=== PATIENT | female | born 1975 | race Two or more races ===

== ENCOUNTER 2024-04-08 07:12 | Emergency (ER) | payer MEDICAID, SELFPAY ==
[2024-04-08 07:13] VITALS: BMI 31.1
[2024-04-08 07:22] VITALS: BP 129/81; PULSE 91; RESP 15; TEMP 36.9; O2SAT 97; BMI 26.2
--- NOTE | 2024-04-08 07:22 | XR_ITS ---
Examination: CT brain head without contrast. 2-D sagittal coronal reconstructions Date and time of exam:April 08, 2024 0801 hrs. Indications: Generalized head pain beginning 10 days ago CTDI: vol (mGy):43.6 DLP: (mGycm):836 Technique: Multiple CT axial sections of the brain have been obtained, 5 mm slice thickness. Contrast has not been administered. 2-D sagittal, coronal reconstructions have been obtained Low dose protocols were performed. One or more of the following dose reduction techniques were used; automated exposure control, adjustment of the mA and/or KV according to patient size, use of iterative reconstruction technique. Findings: No significant ventricular enlargement. Intra-axial or extra-axial hemorrhage density is not seen. No mass effect or midline shift Basal cisterns are not remarkable. Fourth ventricle is midline. Cranial vault intact. Impression: Negative for acute hemorrhage, mass effect or midline shift Advise clinical correlation follow-up accordingly
[2024-04-08] MEDS: METOCLOPRAMIDE 5 MG TABLET 10 MG PO (07:26)
[2024-04-08] MEDS: HYDROcodone/APAP 10/325 TAB PO (07:28)
[2024-04-08] MEDS: DiphenhydrAMINE 25 MG CAPSULE 50 MG PO (07:28)
--- NOTE | 2024-04-08 07:30 | PD.EDHA ---
ED Headache RME/HPI General Chief Complaint: Headache Stated Complaint: HOSKINS x 7 DAYS Time Seen by Provider: 04/08/24 07:16 Arrival date/time: 04/08/24 07:12 RME / HPI RME / HPI Narrative: Patient is a 49-year-old female with past medical history of non-insulin dependent type 2 diabetes on oral medications who presents with 1 week of headache. Patient reports this is the first time she has experienced this type of headache. Denies any changes to vision, numbness, weakness, or other neurological deficit. MD Complaint: headache Onset (ago): day(s) Related Data Home Medications ?Medication ?Instructions ?Recorded ?Confirmed lisinopril 5 mg tablet 5 mg PO DAILY 04/25/18 06/10/20 pioglitazone 15 mg tablet 15 mg PO QDAY 06/10/20 06/10/20 sitagliptin phosphate 50 1 tab PO BID 06/10/20 06/10/20 mg-metformin 1,000 mg tablet (Janumet) Previous Rx's ?Medication ?Instructions ?Recorded ibuprofen 600 mg tablet 600 mg PO Q8H PRN fever or pain 11/30/20 #30 tabs Allergies Allergy/AdvReac Type Severity Reaction Status Date / Time No Known Allergies Allergy Verified 04/08/24 07:16 Review of Systems Review of Systems Systems Reviewed: All systems reviewed, normal except as documented Past Medical History Past Medical History NEUROLOGIC: Negative Neurological Disorders or Seizures CARDIAC: Positive Hypercholesterolemia and Hypertension; Negative Cardiac Disorders or Congestive Heart Failure RESPIRATORY: Negative Chronic Obstructive Pulmonary Disease (COPD), Asthma, Tuberculosis or Sleep Apnea GASTROINTESTINAL: Negative Gastrointestinal Disorders GENITOURINARY: Negative Genitourinary Disorders or Renal Disease REPRODUCTIVE: Positive Previous Pregnancies MUSCULOSKELETAL: Negative Musculoskeletal Disorders ENDOCRINE: Positive Endocrine Disorders and Diabetes Mellitus Type 2; Negative Diabetes Mellitus Type 1 HEMATOLOGIC: Negative Blood Disorders or Sickle Cell Disease OTHER HISTORY: Negative Hospitalization, Autoimmune Disease, Shingles, Falls, Blood Transfusions, Blood Transfusion Reaction, Anesthesia Reactions, Chemotherapy, Radiation Therapy or MRSA Family History FAMILY HISTORY: Positive Family Cardiac Disorders and Family Surgery; Negative Family Psychiatric Problems, Family Respiratory Disorders, Family Gastrointestinal Problems, Family Cancer or Family Anesthesia Reaction Surgical History SURGICAL: Positive Hysterectomy, Tubal Ligation and Section Social History SMOKING STATUS: Never smoker Travel History EBOLA RISK: No ED Exam Narrative Physical exam: Physical Exam General: Awake and in no acute distress. Conversational and non-toxic appearing. HEENT: Normocephalic, atraumatic, mucous membranes moist. Pupils equal, round, and reactive to light. Heart: Regular rate and rhythm, no murmurs. Lungs: Clear to auscultation with no wheezing or crackles. Neurologic: Alert and oriented x3, no gross neurological deficit, and patient able to move all 4 extremities. Extremities: No edema. Skin: No rash or ecchymoses. Course Quality Measures none Orders Category Date Time Status CT head/brain wo con Stat Exams 04/08/24 07:22 Completed A1C [Glycohemoglobin w (eAG)] Stat Lab 04/08/24 07:34 Completed CBC Stat Lab 04/08/24 07:34 Completed CMP [Comprehensive Metabolic Panel] Stat Lab 04/08/24 07:34 Completed DiphenhydrAMINE [Benadryl] Med 04/08/24 07:22 Discontinued 50 mg PO X1 ONE HYDROcodone/APAP 10/325 [[place] 10/325] Med 04/08/24 07:22 Discontinued 1 tab PO X1 ONE Ketorolac Inj [Toradol Inj] Med 04/08/24 08:16 Discontinued 30 mg IM X1 ONE Metoclopramide [Reglan] Med 04/08/24 07:22 Discontinued 10 mg PO X1 ONE Vital Signs Vital signs: Vital Signs Temperature 98.5 F 04/08/24 07:22 Pulse Rate 91 04/08/24 07:22 Respiratory Rate 15 04/08/24 07:22 Blood Pressure 129/81 04/08/24 07:22 Pulse Oximetry (%) 97 04/08/24 07:22 Oxygen Delivery Method Room Air 04/08/24 07:22 Headache MDM Narrative MDM Narrative:: Labs and radiology as follows ordered to determine etiology of headache. CBC is normal according to my interpretation. CMP is normal according to my interpretation, other than elevated glucose 317. CT head is normal according to my interpretation. Patient will be given ketorolac injection and will be safe to discharge home. Return precautions given. Patient data External records reviewed:: [facility] previous records Clinical information provided by:: patient Social determinants that could affect healthcare access:: none Patient has the following chronic illnesses:: As above How is presenting disease/condition affected by chronic disease/condition?: uneffected by Evaluation data The following diagnostics were reviewed and interpreted by me:: lab results and radiology exam(s) Lab and/or radiology exams considered but not ordered:: Ordered Interpretation Summary: As above Medications / Prescriptions Medications or Prescriptions considered but not ordered:: Given Medication administrations:: Medication Administration History Discontinued Medications Hydrocodone Bitart/Acetaminophen (Hydrocodone/Apap 10/325 Tab) 1 tab PO X1 ONE Stop: 04/08/24 07:23 Last Admin: 04/08/24 07:28 Dose: 1 tab Documented By: TWAN Diphenhydramine HCl (Diphenhydramine 25 Mg Capsule) 50 mg PO X1 ONE Stop: 04/08/24 07:23 Last Admin: 04/08/24 07:28 Dose: 50 mg Documented By: TWAN Ketorolac Tromethamine (Ketorolac Inj 60 Mg/2 Ml Vial) 30 mg IM X1 ONE Stop: 04/08/24 08:17 Last Admin: 04/08/24 08:38 Dose: 30 mg Documented By: TWAN Metoclopramide HCl (Metoclopramide 5 Mg Tablet) 10 mg PO X1 ONE Stop: 04/08/24 07:23 Last Admin: 04/08/24 07:26 Dose: 10 mg Documented By: TWAN Given Consultations Consultation(s) initiated? (list below): No Diagnosis Differential diagnosis headache: migraine, tension headache, headache and sinusitis Most likely diagnosis given after review of the tests above:: Tension headache Admission Indicated Admission indicated?: not indicated Admission Request Was there a request for admission?: No Disposition Plan Disposition Plan: Discharge Discharge Attestation Discharge Attestation: The patient and all family members were given an opportunity to ask questions and understood the discharge instructions. Discharge instructions specifically effects, indications for sooner follow up or return to the emergency department, and the expected course of current diagnosis. Patient condition: Stable Discharge Plan Plan Patient Disposition: HOME (Self Care) Patient condition on transfer: Stable Prescriptions/Referrals Prescriptions/Med Rec: No Action ibuprofen 600 mg tablet 600 mg PO Q8H PRN (Reason: fever or pain) Qty: 30 0RF lisinopril 5 mg Tablet 5 mg PO DAILY Janumet 50-1,000 mg Tablet 1 tab PO BID pioglitazone 15 mg Tablet 15 mg PO QDAY Problem List Clinical Impression: Tension headache Patient/Caregiver Discharge Instructions Education Materials: Self-Care for Headaches, Preventing Tension Headaches, ED Headache, Tension Additional Instructions: Please return to ED if symptoms worsen Print Language: Maltese Stand Alone Forms: [employer] Info., Patient Portal Info Letter
[2024-04-08 07:49] LABS: Hematocrit 43.7 % (36.0-46.0); Hemoglobin 15.2 g/dL (12.0-16.0); Mean Corpuscular Hemoglobin 29.8 pg (25.0-35.0); Mean Corpuscular Volume 86 fL (80-100); White Blood Count 9.1 Thou/mm3 (3.6-11.0)
[2024-04-08 07:50] LABS: Basophils % (Auto) 0 % (0-2.5); Eosinophils % (Auto) 0 % (0-10); Immature Granulocytes % (Auto) 0 % (0-0); Immature Granulocytes Auto 0.04 Thou/mm3 (0.00-0.00); Lymphocytes # (Auto) 2.1 Thou/mm3 (1.0-4.8); Lymphocytes % (Auto) 24 % (10-50); Mean Corpuscular HGB Conc 34.8 g/dl (31.0-37.0); Monocytes # (Auto) 0.3 Thou/mm3 (0.0-0.8); Monocytes % (Auto) 4 % (0-12); Neutrophils # (Auto) 6.5 Thou/mm3 (1.8-7.7); Neutrophils % (Auto) 72 % (37-80); Nucleated Red Blood Cell % 0 /100 WBC (0); Platelet Count 353 Thou/mm3 (140-440); RDW Standard Deviation 37.2 fL (36.4-46.3)
[2024-04-08 08:14] LABS: Alanine Aminotransferase 57 U/L (10-49); Albumin, Serum 4.9 gm/dL (3.5-5.0); Albumin/Globulin Ratio 1.4 (1.2-2.2); Alkaline Phosphatase 88 U/L (46-116); Anion Gap 10 (7-16); Aspartate Amino Transferase 32 U/L (0-34); BUN/Creatinine Ratio 20 Ratio (12-20); Bilirubin,Total 0.6 mg/dL (0.3-1.2); Blood Urea Nitrogen 12 mg/dL (9-23); Carbon Dioxide 24.9 mMol/L (20.0-31.0); Chloride 99 mMol/L (98-107); Creatinine (Component) 0.6 mg/dL (0.6-1.3); Estimated Creatinine Clearance 102.7 mL/min (>60); Globulin 3.5 gm/dL (2.3-3.5); Glucose 317 mg/dL (74-106); Osmolality,Calculated 279 (275-295); Potassium 3.7 mMol/L (3.4-5.1); Sodium 134 mMol/L (136-145); Total Protein 8.4 gm/dL (5.7-8.2); eGFR > 60 See Note
[2024-04-08 08:36] LABS: Glucose Estimated Average 237 mg/dL (80-131); Hemoglobin A1C 9.9 % Hgb (4.8-6.0)
[2024-04-08] MEDS: KETOROLAC INJ 60 MG/2 ML VIAL 30 MG IM (08:38)
== END 2024-04-08 09:26 | disposition home or self-care (01) ==
PROVIDERS: Nurse Practitioner Primary Care; Emergency Provider Emergency Medicine; PCP Family Medicine
DX: G44.209 Tension-type headache, unspecified, not intractable (principal); E11.65 Type 2 diabetes mellitus with hyperglycemia; I10 Essential (primary) hypertension; Z79.84 Long term (current) use of oral hypoglycemic drugs
CPT/HCPCS: 36415; 70450; 80053; 83036; 85025; 96372; 99284; J1885; A9270

== ENCOUNTER 2024-04-17 09:56 | Emergency (ER) | payer MEDICAID, SELFPAY ==
--- NOTE | 2024-04-17 | XR_ITS ---
Examinations: MRI Brain without intravenous contrast. MRA brain without intravenous contrast. MRA carotids without intravenous contrast 3-D vascular reconstructions Date and time of exam: April 17, 2024 1218 hours INDICATIONS: Left-sided headaches left eye pain 4 to follow. 10 days worse today Technique: Multiple axial and sagittal images of the brain have been obtained MRA brain carotid images without contrast obtained, including 3-D postprocessing, vascular maximum intensity projection images Findings: [place] is not enlarged. The optic chiasm and infundibular stalk are not remarkable. Prepontine and interpeduncular cisterns are not enlarged. No localized enlargement of the medulla or steven. Fourth ventricle and cerebellar tonsils normal in position. Subacute hemorrhage is not seen. Fourth ventricle is midline. Mass in the cerebellopontine angle region is not evident. 7th and 8th nerve complexes exhibits symmetry. Globes are symmetrical with no retro-orbital mass. Increased white matter signal evident, punctate focus increased signal left posterior temporal lobe FLAIR image 14 left frontal lobe FLAIR image 15 posterior right parietal lobe FLAIR image 15 Diffusion-weighted images demonstrate no focus of restricted diffusion Mass-effect upon the ventricular system is not identified. MRA brain images no large vessel occlusions Impression: Scattered punctate foci increased signal in the cerebral white matter, demyelinating disease pattern
[2024-04-17 10:20] VITALS: BP 117/78; PULSE 110; RESP 16; TEMP 36.8; O2SAT 97; BMI 25.9
--- NOTE | 2024-04-17 10:39 | PD.EDRME ---
Rapid Medical Screening Exam RME Arrival date/time: 04/17/24 09:56 49-year-old female presents the emergency department today with complaints of persistent headache patient reports left eye pain as well as left-sided facial pain patient has had multiple visits to ER as well as primary care and ophthalmology Chief Complaint: Headache Time Seen by Provider: 04/17/24 10:23 Vital signs: Vital Signs Temperature 98.2 F 04/17/24 10:20 Pulse Rate 110 H 04/17/24 10:20 Respiratory Rate 16 04/17/24 10:20 Blood Pressure 117/78 04/17/24 10:20 Pulse Oximetry (%) 97 04/17/24 10:20 Oxygen Delivery Method Room Air 04/17/24 10:20
[2024-04-17] MEDS: DIAZEPAM 5 MG TABLET 10 MG PO (10:54)
[2024-04-17] MEDS: METOCLOPRAMIDE 5 MG TABLET 10 MG PO (10:54)
[2024-04-17] MEDS: HYDROcodone/APAP 5/325 TABLET 1 TAB PO (10:54)
[2024-04-17 11:19] LABS: Basophils % (Auto) 0 % (0-2.5); Eosinophils # (Auto) 0.1 Thou/mm3 (0.0-0.5); Eosinophils % (Auto) 1 % (0-10); Hematocrit 45.2 % (36.0-46.0); Hemoglobin 15.4 g/dL (12.0-16.0); Immature Granulocytes % (Auto) 0 % (0-0); Immature Granulocytes Auto 0.02 Thou/mm3 (0.00-0.00); Lymphocytes # (Auto) 4.1 Thou/mm3 (1.0-4.8); Lymphocytes % (Auto) 42 % (10-50); Mean Corpuscular HGB Conc 34.1 g/dl (31.0-37.0); Mean Corpuscular Hemoglobin 29.7 pg (25.0-35.0); Mean Corpuscular Volume 87 fL (80-100); Monocytes # (Auto) 0.6 Thou/mm3 (0.0-0.8); Monocytes % (Auto) 6 % (0-12); Neutrophils # (Auto) 5.1 Thou/mm3 (1.8-7.7); Neutrophils % (Auto) 52 % (37-80); Nucleated Red Blood Cell % 0 /100 WBC (0); Platelet Count 338 Thou/mm3 (140-440); RDW Standard Deviation 38.2 fL (36.4-46.3); Red Blood Count 5.19 Miln/mm3 (4.00-5.20); White Blood Count 9.9 Thou/mm3 (3.6-11.0)
[2024-04-17 11:42] LABS: Sed Rate (ESR) 33 mm/hr (0-20)
[2024-04-17 12:18] LABS: Alanine Aminotransferase 60 U/L (10-49); Albumin, Serum 4.8 gm/dL (3.5-5.0); Albumin/Globulin Ratio 1.3 (1.2-2.2); Alkaline Phosphatase 84 U/L (46-116); Anion Gap 11 (7-16); Aspartate Amino Transferase 35 U/L (0-34); BUN/Creatinine Ratio 17 Ratio (12-20); Bilirubin,Total 0.4 mg/dL (0.3-1.2); Blood Urea Nitrogen 10 mg/dL (9-23); C-Reactive Protein 0.7 mg/dL (0.0-0.9); Calcium 10.4 mg/dL (8.3-10.6); Calcium (Corrected) 10.4 mg/dL (8.5-10.1); Carbon Dioxide 26.3 mMol/L (20.0-31.0); Chloride 102 mMol/L (98-107); Creatinine (Component) 0.6 mg/dL (0.6-1.3); Estimated Creatinine Clearance 102.2 mL/min (>60); Globulin 3.7 gm/dL (2.3-3.5); Glucose 204 mg/dL (74-106); Osmolality,Calculated 282 (275-295); Sodium 139 mMol/L (136-145); Total Protein 8.5 gm/dL (5.7-8.2); eGFR > 60 See Note
[2024-04-17 14:22] VITALS: BP 123/77; PULSE 100; RESP 16; TEMP 37.2; O2SAT 99
[2024-04-17 16:48] VITALS: BP 124/74; PULSE 94; RESP 18; TEMP 37.1; O2SAT 97
--- NOTE | 2024-04-17 17:23 | PD.EDHA ---
ED Headache RME/HPI General Chief Complaint: Headache Stated Complaint: HEADACHEX 10 DAYS; SEEN ER PREVIOUSLY Time Seen by Provider: 04/17/24 10:23 Arrival date/time: 04/17/24 09:56 RME / HPI RME / HPI Narrative: 49-year-old female presents the emergency department today with complaints of persistent headache patient reports left eye pain as well as left-sided facial pain patient has had multiple visits to ER as well as primary care and ophthalmology. Patient headache is been going on for 10 days. Denies any slurring of speech denies any other complaints patient is ambulatory. Related Data Home Medications ?Medication ?Instructions ?Recorded ?Confirmed lisinopril 5 mg tablet 5 mg PO DAILY 04/25/18 06/10/20 pioglitazone 15 mg tablet 15 mg PO QDAY 06/10/20 06/10/20 sitagliptin phosphate 50 1 tab PO BID 06/10/20 06/10/20 mg-metformin 1,000 mg tablet (Janumet) Previous Rx's ?Medication ?Instructions ?Recorded ibuprofen 600 mg tablet 600 mg PO Q8H PRN fever or pain 11/30/20 #30 tabs rizatriptan 10 mg disintegrating 10 mg PO Q2H PRN migraine headache 04/17/24 tablet (Maxalt-[employer]ER) #20 tabs Allergies Allergy/AdvReac Type Severity Reaction Status Date / Time No Known Allergies Allergy Verified 04/17/24 10:01 Review of Systems Review of Systems Narrative Review of Systems: Review of system reviewed and within normal limits except mentioned in HPI ED Exam Narrative Physical exam: VITAL SIGNS: Reviewed. GENERAL APPEARANCE: Alert and interactive, follows commands, no acute distress, HEAD AND FACE: Non-traumatic. ENT: PERRL, pink conjunctivitis, eyelid no trauma, mild ptosis noted on the left eye,mucous membrane moist. NECK: Supple, nontender, no nuchal rigidity. CHEST: No tenderness, no crepitus, no paradoxical movement, no retractions. LUNGS: Clear, well ventilated, symmetric, no rales, no wheezing, no ronchi, no stridor, good breath sounds bilaterally. HEART: Regular rate, regular rhythm, no murmur, no gallops. ABDOMEN: Soft, positive bowel sounds, nondistended, no guarding, nontender, no rebound, no masses, RECTAL: Deferred. GENITAL: Deferred. NEUROLOGICAL: Gross motor function intact sensory function intact, Appropriate for age. MUSCULOSKELETAL: low back nontender, full range of motion. EXTREMITIES: Nontender, full range of motion. SKIN: Color pink, dry, no rash, no lacerations, no abrasions, no contusions. LYMPHATICS: Deferred. Course Quality Measures none Orders Category Date Time Status MRI Screening NOW Care 04/17/24 10:39 Active MR brain wo MRA brain wo Stat Exams 04/17/24 Completed CBC Stat Lab 04/17/24 10:58 Completed CMP [Comprehensive Metabolic Panel] Stat Lab 04/17/24 10:58 Completed CRP [C-Reactive Protein] Stat Lab 04/17/24 10:58 Completed ESR [Sed Rate (ESR)] Stat Lab 04/17/24 10:58 Completed Diazepam [Valium] Med 04/17/24 10:40 Discontinued 10 mg PO X1 ONE HYDROcodone*/APAP 5/325 [[place] 5/325] Med 04/17/24 10:40 Discontinued 1 tab PO X1 ONE Metoclopramide [Reglan] Med 04/17/24 10:40 Discontinued 10 mg PO X1 ONE Vital Signs Vital signs: Vital Signs Temperature 98.2 F 04/17/24 10:20 Pulse Rate 110 H 04/17/24 10:20 Respiratory Rate 16 04/17/24 10:20 Blood Pressure 117/78 04/17/24 10:20 Pulse Oximetry (%) 97 04/17/24 10:20 Oxygen Delivery Method Room Air 04/17/24 10:20 Headache MDM Narrative MDM Narrative:: 49-year-old female presents the emergency department today with complaints of persistent headache patient reports left eye pain as well as left-sided facial pain patient has had multiple visits to ER as well as primary care and ophthalmology. Patient headache is been going on for 10 days. Denies any slurring of speech denies any other complaints patient is ambulatory. Laboratory workup all came back unremarkable. CT MRI of the brain showed possible demyelinating disease otherwise unremarkable. Results discussed with the patient. Patient was given a copy of the MRI and advised her to closely follow-up with neurologist. Patient data External records reviewed:: None Clinical information provided by:: none Social determinants that could affect healthcare access:: none Patient has the following chronic illnesses:: Diabetes mellitus How is presenting disease/condition affected by chronic disease/condition?: exacerbated by Evaluation data The following diagnostics were reviewed and interpreted by me:: lab results and radiology exam(s) Lab and/or radiology exams considered but not ordered:: None Interpretation Summary: See results in [facility] Medications / Prescriptions Medications or Prescriptions considered but not ordered:: None Medication administrations:: Medication Administration History Discontinued Medications Hydrocodone Bitart/Acetaminophen (Hydrocodone/Apap 5/325 Tablet) 1 tab PO X1 ONE Stop: 04/17/24 10:41 Last Admin: 04/17/24 10:54 Dose: 1 tab Documented By: MELISSA Diazepam (Diazepam 5 Mg Tablet) 10 mg PO X1 ONE Stop: 04/17/24 10:41 Last Admin: 04/17/24 10:54 Dose: 10 mg Documented By: OA Metoclopramide HCl (Metoclopramide 5 Mg Tablet) 10 mg PO X1 ONE Stop: 04/17/24 10:41 Last Admin: 04/17/24 10:54 Dose: 10 mg Documented By: MELISSA Valium, Reglan, and [place] Consultations Consultation(s) initiated? (list below): No Consultation #1 (Physician, Specialty, Details): None Diagnosis Differential diagnosis headache: migraine, tension headache, subarachnoid hemorrhage and other (Demyelinating disease of the brain) Most likely diagnosis given after review of the tests above:: Headache Admission Indicated Admission indicated?: not indicated Admission Request Was there a request for admission?: No Disposition Plan Disposition Plan: Discharge Discharge Attestation Discharge Attestation: The patient and all family members were given an opportunity to ask questions and understood the discharge instructions. Discharge instructions specifically effects, indications for sooner follow up or return to the emergency department, and the expected course of current diagnosis. Patient condition: Stable Discharge Plan Plan Patient Disposition: HOME (Self Care) Disposition Comment: Stable Prescriptions/Referrals Prescriptions/Med Rec: New rizatriptan [Maxalt-[employer] LEADER] 10 mg tablet,disintegrating 10 mg PO Q2H PRN (Reason: migraine headache) Qty: 20 0RF Rx Instructions: do not exceed 3 doses per 24 hrs No Action ibuprofen 600 mg tablet 600 mg PO Q8H PRN (Reason: fever or pain) Qty: 30 0RF lisinopril 5 mg Tablet 5 mg PO DAILY Janumet 50-1,000 mg Tablet 1 tab PO BID pioglitazone 15 mg Tablet 15 mg PO QDAY Referrals: Bickmore,Giuseppe, PA-C [Primary Care Provider] - In 1 week Problem List Clinical Impression: Headache Patient/Caregiver Discharge Instructions Discharge Activity: activity as tolerated Education Materials: Self-Care for Headaches Additional Instructions: Thank you for the opportunity for serving you today. You are stable for discharged . You are advised to: Follow-up with your PCP in 1 to 2 days and asked your PCP to refer you to a neurologist Return to ED for worsening of symptoms Increase oral fluids Take medication as prescribed Print Language: Chadian Stand Alone Forms: [employer] Info., Patient Portal Info Letter
== END 2024-04-17 17:42 | disposition home or self-care (01) ==
PROVIDERS: Nurse Practitioner Primary Care; Emergency Provider Emergency Medicine; PCP Family Medicine
DX: R51.9 Headache, unspecified (principal); E11.9 Type 2 diabetes mellitus without complications
CPT/HCPCS: 36415; 70544; 70551; 80053; 85025; 85652; 86140; 99284; A9270